=== PATIENT | male | born 2005 | race Caucasian/White ===

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

== ENCOUNTER 2025-01-28 11:17 | Emergency (ER) | payer MEDICAID ==
[~2025-01-28] VITALS: Ht 170.2 cm; Wt 52.0 kg
--- NOTE | 2025-01-28 11:56 | ED.PDOC ---
GI ASSESSMENT HPI Comments 19-year-old male with no MHx presents with vomiting after smoking marijuana. Symptoms started 3 days ago Chief Complaint: Nausea/Vomiting Time Seen by MD: 11:23 Primary Care Provider: unknown Reviewed Notes: Nurses Notes, Medications, Allergies Allergies: Coded Allergies: NO KNOWN ALLERGIES (Unverified , 10/05/11) Home Meds No Active Prescriptions or Reported Meds Information Source: Patient Mode of Arrival: Ambulatory Past Medical History PAST MEDICAL HISTORY: Denies Surgical History: Denies all surgeries Family History Family History: Family hx of DM Social History Smoker: Non-Smoker Alcohol: Denies ETOH Use Drugs: Denies Drug Use Lives In: Home All Other Systems: Reviewed and Negative (PER HPI) Physical Exam General Appearance: No Apparent Distress, Normal HEENT: Normal ENT Inspection, Pharynx Normal, TMs Normal Neck: Full Range of Motion, Non-Tender, Normal, Normal Inspection Respiratory: Chest Non-Tender, Lungs Clear, No Accessory Muscle Use, No Respiratory Distress, Normal Breath Sounds Cardiovascular: No Edema, No JVD, No Murmur, No Gallop, Normal Peripheral Pulse s, Regular Rate/Rhythm Breast Exam: Deferred Gastrointestinal: No Organomegaly, Non Tender, No Pulsatile Mass, Normal Bowel Sounds, Soft Genitalia: Deferred Pelvic: Deferred Rectal: Deferred Extremities: No calf tenderness, Normal capillary refill, Normal inspection, Normal range of motion, Non-tender, No pedal edema Musculoskeletal : Apperance: Normal Neurologic: Alert, gas plumbing inspector II-XII nml as Tested, No Motor Deficits, Normal Affect, Normal Mood, No Sensory Deficits Cerebellar Function: Normal Reflexes: Normal Skin: Dry, Normal Color, Warm Lymphatic: No Adenopathy Was a procedure done? Was a procedure done?: No GI differential Dx Differential Diagnosis: Other X-Ray, Labs, Meds, VS Vital Signs Date Time Temp Pulse Resp B/P (MAP) Pulse Ox O2 Delivery O2 Flow Rate FiO2 01/28/25 12:10 76 16 96 Room Air 01/28/25 12:10 97.7 76 16 132/74 (93) 96 97.7 01/28/25 11:18 97.6 93 16 138/72 95 97.6 Lab Test 01/28/25 12:13 Range/Units White Blood Count 12.3 H 4.4-10.8 10^3/uL Red Blood Count 5.64 4.5-5.90 10^6/uL Hemoglobin 17.6 H 13.5-17.5 g/dL Hematocrit 50.2 41.0-53.0 % Mean Corpuscular Volume 88.9 80.0-100.0 fL Mean Corpuscular Hemoglobin 31.1 28.0-32.0 pg Mean Corpuscular Hemoglobin Concent 35.0 32.0-36.0 g/dL Red Cell Distribution Width 12.7 11.8-14.3 % Platelet Count 366 140-450 10^3/uL Mean Platelet Volume 9.4 6.9-10.8 fL Neutrophils (%) (Auto) 66.5 37.0-80.0 % Lymphocytes (%) (Auto) 16.9 10.0-50.0 % Monocytes (%) (Auto) 16.4 H 0.0-12.0 % Eosinophils (%) (Auto) 0.1 0.0-7.0 % Basophils (%) (Auto) 0.1 0.0-2.0 % Neutrophils # (Auto) 8.1 1.6-8.6 10 ^3/uL Lymphocytes # (Auto) 2.1 0.4-5.4 10 ^3/uL Monocytes # (Auto) 2.0 H 0-1.3 10 ^3/uL Eosinophils # (Auto) 0 0-0.8 10 ^3/uL Basophils # (Auto) 0 0-0.2 10 ^3/uL Nucleated Red Blood Cells 0.2 % Sodium Level 129 L 136-145 mmol/L Potassium Level 2.5 *L 3.5-5.1 mmol/L Chloride Level 74 L 98-107 mmol/L Carbon Dioxide Level 39 H 20-31 mmol/L Anion Gap 16 H 5-15 Blood Urea Nitrogen 34 H 9-23 mg/dL Creatinine 1.63 H 0.700-1.30 mg/dL Glomerular Filtration Rate Calc 61 >90 mL/min BUN/Creatinine Ratio 20.9 H 10.0-20.0 Serum Glucose 106 74-106 mg/dL Calcium Level 10.4 8.7-10.4 mg/dL Magnesium Level 2.6 1.6-2.6 mg/dL Current Medications Medications (Trade) Dose Ordered Sig/Aguilar Route Start Time Stop Time Status Last Admin Sodium Chloride 1,000 ml @ 1,000 mls/hr Q1H ONCE IV 8/10/25 12:00 01/28/25 12:59 DC 01/28/25 12:21 Ondansetron HCl (Zofran) 4 mg ONCE ONCE IV 01/28/25 12:00 01/28/25 12:01 DC 01/28/25 12:27 X-Ray, Labs, Meds, VS Comment ELOPED Time of 1ST Reevaluation: 13:15 Reevaluation 1ST: Improved Patient Education/Counseling: Diagnosis, Treatment Family Education/Counseling: Diagnosis, Treatment SEPSIS Sepsis Screen Date sepsis recognized/suspect: Jan 28, 2025 Time Sepsis recognized/suspect: 1120 Recent Procedure: No On Antibiotic Therapy: No Respiratory Rate >20: No Heart Rate >90: Yes Temp<36 C (96.8 F) or >38.3 C: No SBP <90 or MAP <65 mmHG: No New Acute Mental Status Change: No Is the patient on CPAP, BIPAP,: No Physician Orders Heplock Iv (01/28/25 ) Vital Signs Date Time Temp Pulse Resp B/P (MAP) Pulse Ox O2 Delivery O2 Flow Rate FiO2 01/28/25 12:10 76 16 96 Room Air 01/28/25 12:10 97.7 76 16 132/74 (93) 96 97.7 01/28/25 11:18 97.6 93 16 138/72 95 97.6 Laboratory Tests Test 01/28/25 12:13 White Blood Count 12.3 10^3/uL (4.4-10.8) H Departure 1 Departure Time of Disposition: 13:15 Impression: Primary Impression: Eloped from emergency department Disposition: 07 LEFT AWOL/ELOPED Condition: Serious e-Prescriptions No Active Prescriptions or Reported Meds Critical Care Note Critical Care Time?: No Stability Stability form required: No Heart Score Heart Score: Heart Score Response (Comments) Value History N/A 0 EKG N/A 0 Age N/A 0 Risk Factors N/A 0 Troponin N/A 0 Total 0 JUAN M GARCIA SENIOR FORMULATION SCIENTIST Jan 28, 2025 11:56
[2025-01-28 12:10] VITALS: BP 132/74; PULSE 76; RESP 16; TEMP 97.7; O2SAT 96
[2025-01-28] MEDS: SODIUM CHLORIDE 0.9% 1,000 ML IV ONE (12:21)
[2025-01-28] MEDS: ONDANSETRON HCL 4 MG/2 ML VIAL IV ONE (12:27)
[2025-01-28 12:34] LABS: Anion Gap 16 (5-15); Calcium 10.4 mg/dL (8.7-10.4); Hematocrit 50.2 % (41.0-53.0); Hemoglobin 17.6 g/dL (13.5-17.5); Mean Corpuscular Hemoglobin 31.1 pg (28.0-32.0); Mean Corpuscular Volume 88.9 fL (80.0-100.0); Nucleated Red Blood Cells % 0.2 %
[2025-01-28 12:39] LABS: BUN/Creatinine Ratio 20.9 (10.0-20.0); Glucose 106 mg/dL (74-106)
[2025-01-28 12:43] LABS: Blood Urea Nitrogen 34 mg/dL (9-23); Carbon Dioxide 39 mmol/L (20-31); Chloride 74 mmol/L (98-107); Magnesium 2.6 mg/dL (1.6-2.6); Sodium 129 mmol/L (136-145)
[2025-01-28 12:46] LABS: Potassium 2.5 mmol/L (3.5-5.1)
== END 2025-01-28 13:17 | disposition left against medical advice (07) ==
LOC: ER 11:17
DX: R11.10 Vomiting, unspecified (principal); F12.90 Cannabis use, unspecified, uncomplicated; Z79.899 Other long term (current) drug therapy
CPT/HCPCS: 36415; 80048; 83735; 85025; 96374; 99283; J2405

== ENCOUNTER 2025-05-07 09:45 | Emergency (ER) | payer MEDICAID ==
[~2025-05-07] VITALS: Ht 170.2 cm; Wt 57.5 kg
[2025-05-07 09:48] VITALS: BP 112/66; PULSE 102; RESP 20; TEMP 98.2; O2SAT 95
--- NOTE | 2025-05-07 10:24 | ED.PDOC ---
GI ASSESSMENT HPI Comments 19 year old male presents to the ED with a chief complaint of nausea/vomiting onset 3 days. Patient states he is currently experiencing nausea/vomiting as well as generalized abdominal pain for the past 3 days. He smoked marijuana prior to symptoms, has experienced similar symptoms after smoking marijuana. Denies fever, chills, headache, dizziness, dysuria, hematuria, diarrhea, constipation, hematemesis, blood in stool, melena. No other symptoms or modifying factors present at this time. Chief Complaint: Nausea/Vomiting Time Seen by MD: 10:20 Primary Care Provider: unknown Reviewed Notes: Medications, Allergies Allergies: Coded Allergies: NO KNOWN ALLERGIES (Unverified , 10/05/11) Home Meds No Active Prescriptions or Reported Meds Information Source: Patient Mode of Arrival: Ambulatory Timing: Days Duration: Since onset Prehospital treatment: None Quality: Sharp Severity: Moderate Recent: None Recent Hx of: Other (marijuana) Pain Location: Diffuse Modifying Factors: Nothing Associated sign and symptoms: Nausea, Vomiting, Abdominal Pain Past Medical History PAST MEDICAL HISTORY: Denies Surgical History: Denies all surgeries Family History Family History: Family hx of DM Social History Smoker: Non-Smoker Alcohol: Denies ETOH Use Drugs: Marijuana Lives In: Home Constitutional: denies: chills, diaphoresis, fatigue, fever, malaise, sweats, weakness, others EENTM: denies: blurred vision, double vision, ear bleeding, ear discharge, ear drainage, ear pain, ear ringing, eye pain, eye redness, hearing loss, mouth pain, mouth swelling, nasal discharge, nose bleeding, nose congestion, nose pain, photophobia, tearing, throat pain, throat swelling, voice changes, others Respiratory: denies: cough, hemoptysis, orthopnea, SOB at rest, shortness of breath, SOB with excertion, stridor, wheezing, others Cardiovascular: denies: chest pain, dizzy spells, diaphoresis, Dyspnea on exertion, edema, irregular heart beat, left arm pain, lightheadedness, palp itations, PND, syncope, others Gastrointestinal: reports: abdominal pain, nausea, vomiting; denies: abdomen distended, blood streaked bowels, constipated, diarrhea, dysphagia, difficulty swallowing, hematemesis, melena, poor appetite, poor fluid intake, rectal bleeding, rectal pain, others Genitourinary: denies: burning, dysuria, flank pain, frequency, hematuria, incontinence, penile discharge, penile sore, pain, testicle pain, testicle swelling, urgency, others Neurological: denies: dizziness, fainting, headache, left sided numbness, left sided weakness, numbness, paresthesia, pre-existing deficit, right sided numbness, right sided weakness, seizure, speech problems, tingling, tremors, weakness, others Musculoskeletal: denies: back pain, gout, joint pain, joint swelling, muscle pain, muscle stiffness, neck pain, others Integumetry: denies: bruises, change in color, change in hair/nails, dryness, laceration, lesions, lumps, rash, wounds, others Allergic/Immunocompromised: denies: Difficulty Healing, Frequent Infections, Hives, Itching, others Hematologic/Lymphatic: denies: anemia, blood clots, easy bleeding, easy bruising, swollen glands, others Endocrine: denies: excessive hunger, excessive sweating, excessive thirst, excessive urination, flushing, intolerance to cold, intolerance to heat, unexplained weight gain, unexplained weight loss, others Psychiatric: denies: anxiety, bipolar disorder, depression, hopeless, panic disorder, schizophrenia, sleepless, suicidal, others All Other Systems: Reviewed and Negative Physical Exam General Appearance: Normal HEENT: Normal ENT Inspection, Pharynx Normal, TMs Normal Neck: Full Range of Motion, Non-Tender, Normal, Normal Inspection Respiratory: Chest Non-Tender, Lungs Clear, No Accessory Muscle Use, No Respiratory Distress, Normal Breath Sounds Cardiovascular: No Edema, No JVD, No Murmur, No Gallop, Normal Peripheral Pulses, Regular Rate/Rhythm Breast Exam: Deferred Gastrointestinal: No Organomegaly, Non Tender, No Pulsatile Mass, Normal Bowel Sounds, Soft Genitalia: Deferred Pelvic: Deferred Rectal: Deferred Extremities: No calf tenderness, Normal capillary refill, Normal inspection, Normal range of motion, Non-tender, No pedal edema Musculoskeletal : Apperance: Normal Neurologic: Alert, biology instructor II-XII nml as Tested, No Motor Deficits, Normal Affect, Normal Mood, No Sensory Deficits Cerebellar Function: Normal Reflexes: Normal Skin: Dry, Normal Color, Warm Lymphatic: No Adenopathy GI differential Dx Differential Diagnosis: Gastritis/PUD, Gastroenteritis, Dehydration, Electrolyte Imbalance, Bacterial, Viral X-Ray, Labs, Meds, VS Vital Signs Date Time Temp Pulse Resp B/P (MAP) Pulse Ox O2 Delivery O2 Flow Rate FiO2 05/07/25 09:48 98.2 102 20 112/66 95 98.2 Time of 1ST Reevaluation: 10:50 Reevaluation 1ST: Unchanged Patient Education/Counseling: Diagnosis, Treatment, Prognosis Family Education/Counseling: Diagnosis, Treatment, Prognosis SEPSIS Sepsis Screen Date sepsis recognized/suspect: May 07, 2025 Time Sepsis recognized/suspect: 947 Recent Procedure: No On Antibiotic Therapy: No Respiratory Rate >20: No Heart Rate >90: Yes Temp<36 C (96.8 F) or >38.3 C: No SBP <90 or MAP <65 mmHG: No New Acute Mental Status Change: No Is the patient on CPAP, BIPAP,: No Vital Signs Date Time Temp Pulse Resp B/P (MAP) Pulse Ox O2 Delivery O2 Flow Rate FiO2 05/07/25 09:48 98.2 102 20 112/66 95 98.2 Departure 1 Departure e-Prescriptions No Active Prescriptions or Reported Meds Critical Care Note Critical Care Time?: No Stability Stability form required: No Heart Score Heart Score: Heart Score Response (Comments) Value History N/A 0 EKG N/A 0 Age N/A 0 Risk Factors N/A 0 Troponin N/A 0 Total 0 I personally scribed for RHIANNA KEENE MD ([email or web address]) on 05/07/25 at 10:24. Electronically submitted by Brittney Kent ([email or web address]). RHIANNA KEENE MD May 07, 2025 10:24
[2025-05-07] MEDS ORDERED: HALOPERIDOL LACTATE 5 MG/ML INJ VIAL IM ONE (10:30)
[2025-05-07 11:58] LABS: Hematocrit 46.4 % (41.0-53.0); Hemoglobin 16.7 g/dL (13.5-17.5); Mean Corpuscular Hemoglobin 31.3 pg (28.0-32.0); Mean Corpuscular Volume 86.8 fL (80.0-100.0); Nucleated Red Blood Cells % 0.1 %
[2025-05-07 12:20] LABS: Calcium 10.3 mg/dL (8.7-10.4)
[2025-05-07 12:25] LABS: BUN/Creatinine Ratio 25.9 (10.0-20.0); Glucose 105 mg/dL (74-106)
[2025-05-07 12:26] LABS: Anion Gap 15.99999 (5-15); Blood Urea Nitrogen 48 mg/dL (9-23); Chloride 75 mmol/L (98-107); Sodium 131 mmol/L (136-145)
[2025-05-07 12:27] LABS: Carbon Dioxide > 40 mmol/L (20-31); Potassium 2.2 mmol/L (3.5-5.1)
== END 2025-05-07 13:22 | disposition left against medical advice (07) ==
LOC: ER 09:45
DX: R11.2 Nausea with vomiting, unspecified (principal); R10.84 Generalized abdominal pain; Z79.899 Other long term (current) drug therapy
CPT/HCPCS: 36415; 80048; 85025